=== PATIENT | female | born 1985 | race Caucasian/White ===

== ENCOUNTER 2021-04-14 05:34 | Emergency (ER) | payer BC ==
[~2021-04-14] VITALS: Ht 167.6 cm; Wt 61.2 kg
[2021-04-14] MEDS ORDERED: DICLOFENAC SODI75 MG PO (06:31)
== END 2021-04-14 07:04 | disposition home or self-care (01) ==
LOC: ER 05:34
DX: M25.572 Pain in left ankle and joints of left foot (principal)